=== PATIENT | male | born 1975 | race Caucasian/White ===

== ENCOUNTER 2017-09-22 16:41 | Emergency (ER) | payer OTHER ==
[~2017-09-22] VITALS: Ht 162.6 cm; Wt 83.0 kg
[2017-09-22 16:58] VITALS: BP 159/113
--- NOTE | 2017-09-22 17:43 | NUR ---
PATIENT AMBULATED TO ER BED 12
[2017-09-22] MEDS ORDERED: NACL 0.9% 1,000 ML IV SCH (18:11)
[2017-09-22] MEDS ORDERED: MORPHINE SULFATE 2 MG/ML SYR IVP ONE (18:15)
[2017-09-22] MEDS ORDERED: ONDANSETRON 4 MG/2 ML VIAL IVP ONE (18:15)
[2017-09-22 18:39] LABS: BASOPHILS # (AUTO) 0.1 K/uL (0.00-0.22); BASOPHILS % (AUTO) 1.7 % (0.0-2.0); EOSINOPHILS # (AUTO) 0.1 K/uL (0-0.4); EOSINOPHILS % (AUTO) 2.1 % (0.0-4.0); HEMOGLOBIN 11.4 g/dL (12.0-18.0); LYMPHOCYTES # (AUTO) 1.5 K/uL (2.0-11.5); LYMPHOCYTES % (AUTO) 25.4 % (20.5-51.1); MEAN CORPUSCULAR HEMOGLOBIN 28 pg (27-31); MEAN CORPUSCULAR HGB CONC 33 g/dL (33-37); MEAN CORPUSCULAR VOLUME 84.9 fL (80-94); MONOCYTES # (AUTO) 0.5 K/uL (0.8-1.0); MONOCYTES % (AUTO) 8.1 % (1.7-9.3); NEUTROPHILS # (AUTO) 3.7 K/uL (1.8-7.7); NEUTROPHILS % (AUTO) 62.7 % (42.2-75.2); PLATELET COUNT (AUTO) 273 K/uL (140-450); RED CELL DISTRIBUTION WIDTH 14.3 % (11.6-13.7)
[2017-09-22 18:55] LABS: ANION GAP 9.1 (8-16); CARBON DIOXIDE 26.9 mmol/L (21-32); CREATININE 2.5 mg/dL (0.7-1.3)
[2017-09-22 19:04] LABS: ALBUMIN 1.4 g/dL (3.4-5.0); TOTAL BILIRUBIN 0.2 mg/dL (0.0-1.0)
--- NOTE | 2017-09-22 19:19 | NUR ---
REPORT RECEIVED FROM ELIZABETH LAFLEUR
[2017-09-22 19:22] LABS: APPEARANCE,URINE CLEAR (CLEAR); BILIRUBIN,URINE NEGATIVE (NEGATIVE); BLOOD, URINE 2+ (NEGATIVE); COLOR,URINE YELLOW (YELLOW); LEUKOCYTE ESTERASE ,URINE NEGATIVE (NEGATIVE); NITRITE, URINE NEGATIVE (NEGATIVE); UGLUCOSE 3+ (NEGATIVE)
[2017-09-22 19:32] LABS: RBC,URINE 0-5 (RARE) /HPF (0-5); WBC,URINE 0-5 (RARE) /HPF (0-5)
[2017-09-22 19:33] LABS: URINE AMORPHOUS URATE 2+ /HPF (None Seen)
--- NOTE | 2017-09-22 20:29 | NUR ---
ER NOTIFTED OF BP BY MIQUEL ROBLEDO, IVP PAIN MEDS ORDER BY ER MD BIGGS
--- NOTE | 2017-09-22 20:29 | NUR ---
PHYSICIAN MADE AWARE OF ELEVATED BP, MEDS ORDERED
[2017-09-22] MEDS ORDERED: DICYCLOMINE HCL LIQUID 20 MG, ALUMINUM HYD/MAG/SIMETHICONE 30 ML, LIDOCAINE VISCOUS 2% ... PO ONE ×3 (20:30)
[2017-09-22] MEDS ORDERED: HYDROmorphone 1 MG/ML AMP IVP ONE (20:30)
[2017-09-22] MEDS ORDERED: cloNIDine 0.1 MG TAB PO ONE (21:20)
[2017-09-22] MEDS ORDERED: FUROSEMIDE 40 MG/4 ML VIAL IVP SCH (21:20)
--- NOTE | 2017-09-22 22:25 | NUR ---
FPatient discharged with v/s stable. Written and verbal after care instructions given and explained. Patient alert, oriented and verbalized understanding of instructions. Ambulatory with steady gait. All questions addressed prior to discharge. ID band removed. Patient advised to follow up with PMD. Rx of BENTYL given. Patient educated on indication of medication including possible reaction and side effects. Opportunity to ask questions provided and answered. IV removed, catheter intact and site benign. Applied folded 4x4 gauze and tape to stop bleeding.
[2017-09-22 22:32] VITALS: BP 158/110
== END 2017-09-22 22:25 | disposition home or self-care (01) ==
LOC: MED 16:41
DX: I10 Essential (primary) hypertension (principal); R10.84 Generalized abdominal pain; E11.9 Type 2 diabetes mellitus without complications; K21.9 Gastro-esophageal reflux disease without esophagitis; Z90.49 Acquired absence of other specified parts of digestive tract
CPT/HCPCS: 36415; 74176; 80053; 81001; 83690; 85025; 96361; 96374; 96375; 99285; J1170; J2270; J2405; J7030; J1940